=== PATIENT | male | born 1950 | race Caucasian/White ===

== ENCOUNTER 2021-01-30 12:04 | Inpatient (IN) ==
[2021-01-30] MEDS ORDERED: D5% in Water 1,000 ML IVC PRN (16:28)
[2021-01-30] MEDS ORDERED: Dextrose Gel 15 GM/37.5 ML TUBE PO PRN ×2 (16:28)
[2021-01-30] MEDS ORDERED: *HR* Dextrose 50 % in Water (Vial) 50 ML VIAL IVP PRN (16:28)
[2021-01-30] MEDS ORDERED: *HR* Metformin 500 MG TABLET PO SCH (17:00)
[2021-01-30] MEDS ORDERED: NON-FORMULARY MEDICATION 1 EACH EACH (Insulin Aspart [Novolog Flexpen] 100 UNIT/ML Insuln. SQ SCH (17:00)
[2021-01-30] MEDS: *HR* Metformin 500 MG TABLET PO SCH (18:33)
[2021-01-30] MEDS: RIVAROXABAN 2.5 MG PO SCH (18:33)
[2021-01-30] MEDS: Insulin LISPRO 300 UNITS/3 ML VIAL SUBQ SCH (18:33)
[2021-01-30] MEDS: Gabapentin 300 MG CAPSULE PO SCH (18:33)
[2021-01-30] MEDS: Insulin DETEMIR 100 UNIT/ML X5UNITS SUBQ SCH (21:15)
[2021-01-31 06:57] LABS: Basophils # 0.1 K/mcL (0.0-0.2); Basophils % 0.8 %; Eosinophils # 0.4 K/mcL (0.0-0.6); Eosinophils % 3.7 %; Hematocrit 34.9 % (37.5-50.1); Hemoglobin 11.3 g/dL (12.9-16.9); Immature Granulocytes % 0.8 % (0-4); Lymphocytes # 3.2 K/mcL (0.6-4.6); Lymphocytes % 33.4 %; Mean Corpuscular HGB Conc 32.4 g/dL (31.6-35.5); Mean Corpuscular Volume 89.5 fL (83.0-100.0); Mean Platelet Volume 11.2 fL (9.4-12.4); Monocytes # 1.2 K/mcL (0.0-1.3); Monocytes % 12.7 %; Neutrophils # 4.7 K/mcL (1.6-8.9); Platelet Count 228 K/mcL (140-400); Red Cell Distribution Width 14.5 % (11.5-14.5); Segmented Neutrophils % 48.6 %; White Blood Count 9.6 K/mcL (4.3-11.1)
[2021-01-31 07:21] LABS: BUN/Creatinine Ratio 18 (6-26); Blood Urea Nitrogen 24 mg/dL (8-23); Calcium 9.3 mg/dL (8.6-10.3); Carbon Dioxide 29 mEq/L (23-29); Chloride 104 mEq/L (98-107); Glucose 230 mg/dL (70-105); Osmolality,Calculated 303 (280-300); Sodium 141 mEq/L (136-145); eGFR For African Americans > 60 (> 60); eGFR For Non-African Americans 53 (> 60)
[2021-01-31] MEDS ORDERED: Insulin DETEMIR 100 UNIT/ML X5UNITS SUBQ SCH (09:00)
[2021-01-31] MEDS: RIVAROXABAN 2.5 MG PO SCH ×2 (09:12→17:07)
[2021-01-31] MEDS: Insulin LISPRO 300 UNITS/3 ML VIAL SUBQ SCH ×3 (09:14→17:07)
[2021-01-31] MEDS: *HR* GlipiZIDE XL (24 HR) 10 MG TABLET PO SCH (09:14)
[2021-01-31] MEDS: *HR* Metformin 500 MG TABLET PO SCH ×2 (09:14→17:06)
[2021-01-31] MEDS: Isosorbide MONOnitrate (24 HR) 60 MG TAB.ER.24H PO SCH (09:14)
[2021-01-31] MEDS: Cyanocobalamin (B-12) 1,000 MCG TABLET PO SCH (09:14)
[2021-01-31] MEDS: Cholecalciferol (D-3) 1,000 UNIT (25MCG) TABLET PO SCH (09:14)
[2021-01-31] MEDS: lisinopriL 5 MG TABLET PO SCH (09:15)
[2021-01-31] MEDS: Gabapentin 300 MG CAPSULE PO SCH ×2 (09:15→17:07)
[2021-01-31] MEDS: Metoprolol XL (24 HR) Succ 25 MG TAB.ER.24H PO SCH (09:15)
[2021-01-31] MEDS: Aspirin 81 MG TAB.CHEW PO SCH (09:15)
[2021-01-31] MEDS: Insulin DETEMIR 100 UNIT/ML X5UNITS SUBQ SCH ×2 (09:18→20:42)
[2021-01-31] MEDS ORDERED: *HR* LORazepam 0.5 MG TABLET PO PRN (17:35)
[2021-02-01] MEDS: RIVAROXABAN 2.5 MG PO SCH ×2 (08:04→16:57)
[2021-02-01] MEDS: *HR* GlipiZIDE XL (24 HR) 10 MG TABLET PO SCH (08:05)
[2021-02-01] MEDS: Cyanocobalamin (B-12) 1,000 MCG TABLET PO SCH (08:05)
[2021-02-01] MEDS: Metoprolol XL (24 HR) Succ 25 MG TAB.ER.24H PO SCH (08:05)
[2021-02-01] MEDS: Gabapentin 300 MG CAPSULE PO SCH ×2 (08:05→16:57)
[2021-02-01] MEDS: *HR* Metformin 500 MG TABLET PO SCH ×2 (08:05→16:56)
[2021-02-01] MEDS: lisinopriL 5 MG TABLET PO SCH (08:05)
[2021-02-01] MEDS: Insulin LISPRO 300 UNITS/3 ML VIAL SUBQ SCH ×3 (08:06→16:58)
[2021-02-01] MEDS: Cholecalciferol (D-3) 1,000 UNIT (25MCG) TABLET PO SCH (08:06)
[2021-02-01] MEDS: Isosorbide MONOnitrate (24 HR) 60 MG TAB.ER.24H PO SCH (08:06)
[2021-02-01] MEDS: Aspirin 81 MG TAB.CHEW PO SCH (08:06)
[2021-02-01] MEDS: Insulin DETEMIR 100 UNIT/ML X5UNITS SUBQ SCH ×2 (12:18→20:27)
[2021-02-02] MEDS: Insulin LISPRO 300 UNITS/3 ML VIAL SUBQ SCH ×3 (07:46→17:24)
[2021-02-02] MEDS: Isosorbide MONOnitrate (24 HR) 60 MG TAB.ER.24H PO SCH (08:49)
[2021-02-02] MEDS: Gabapentin 300 MG CAPSULE PO SCH ×2 (08:49→17:24)
[2021-02-02] MEDS: Aspirin 81 MG TAB.CHEW PO SCH (08:49)
[2021-02-02] MEDS: *HR* Metformin 500 MG TABLET PO SCH ×2 (08:49→17:24)
[2021-02-02] MEDS: Cyanocobalamin (B-12) 1,000 MCG TABLET PO SCH (08:50)
[2021-02-02] MEDS: Cholecalciferol (D-3) 1,000 UNIT (25MCG) TABLET PO SCH (08:50)
[2021-02-02] MEDS: *HR* GlipiZIDE XL (24 HR) 10 MG TABLET PO SCH (08:50)
[2021-02-02] MEDS: lisinopriL 5 MG TABLET PO SCH (08:50)
[2021-02-02] MEDS: Metoprolol XL (24 HR) Succ 25 MG TAB.ER.24H PO SCH (08:50)
[2021-02-02] MEDS: RIVAROXABAN 2.5 MG PO SCH ×2 (08:51→17:26)
[2021-02-02] MEDS: Insulin DETEMIR 100 UNIT/ML X5UNITS SUBQ SCH ×2 (08:51→20:27)
[2021-02-03] MEDS: Insulin LISPRO 300 UNITS/3 ML VIAL SUBQ SCH ×3 (07:21→17:17)
[2021-02-03] MEDS: RIVAROXABAN 2.5 MG PO SCH ×2 (08:38→17:16)
[2021-02-03] MEDS: Cholecalciferol (D-3) 1,000 UNIT (25MCG) TABLET PO SCH (08:38)
[2021-02-03] MEDS: Insulin DETEMIR 100 UNIT/ML X5UNITS SUBQ SCH ×2 (08:38→21:13)
[2021-02-03] MEDS: Metoprolol XL (24 HR) Succ 25 MG TAB.ER.24H PO SCH (08:39)
[2021-02-03] MEDS: lisinopriL 5 MG TABLET PO SCH (08:39)
[2021-02-03] MEDS: *HR* Metformin 500 MG TABLET PO SCH ×2 (08:39→17:16)
[2021-02-03] MEDS: Isosorbide MONOnitrate (24 HR) 60 MG TAB.ER.24H PO SCH (08:39)
[2021-02-03] MEDS: Gabapentin 300 MG CAPSULE PO SCH ×2 (08:39→17:16)
[2021-02-03] MEDS: Aspirin 81 MG TAB.CHEW PO SCH (08:39)
[2021-02-03] MEDS: *HR* GlipiZIDE XL (24 HR) 10 MG TABLET PO SCH (08:39)
[2021-02-03] MEDS: Cyanocobalamin (B-12) 1,000 MCG TABLET PO SCH (08:39)
[2021-02-04] MEDS: Aspirin 81 MG TAB.CHEW PO SCH (09:08)
[2021-02-04] MEDS: *HR* Metformin 500 MG TABLET PO SCH ×2 (09:08→16:55)
[2021-02-04] MEDS: Cholecalciferol (D-3) 1,000 UNIT (25MCG) TABLET PO SCH (09:08)
[2021-02-04] MEDS: Gabapentin 300 MG CAPSULE PO SCH ×2 (09:08→16:55)
[2021-02-04] MEDS: Cyanocobalamin (B-12) 1,000 MCG TABLET PO SCH (09:09)
[2021-02-04] MEDS: lisinopriL 5 MG TABLET PO SCH (09:09)
[2021-02-04] MEDS: *HR* GlipiZIDE XL (24 HR) 10 MG TABLET PO SCH (09:09)
[2021-02-04] MEDS: Isosorbide MONOnitrate (24 HR) 60 MG TAB.ER.24H PO SCH (09:09)
[2021-02-04] MEDS: Metoprolol XL (24 HR) Succ 25 MG TAB.ER.24H PO SCH (09:09)
[2021-02-04] MEDS: Insulin DETEMIR 100 UNIT/ML X5UNITS SUBQ SCH ×2 (09:11→21:20)
[2021-02-04] MEDS: Insulin LISPRO 300 UNITS/3 ML VIAL SUBQ SCH ×3 (09:13→16:55)
[2021-02-04] MEDS: RIVAROXABAN 2.5 MG PO SCH ×2 (11:28→16:55)
[2021-02-05] MEDS: Isosorbide MONOnitrate (24 HR) 60 MG TAB.ER.24H PO SCH (08:22)
[2021-02-05] MEDS: Insulin LISPRO 300 UNITS/3 ML VIAL SUBQ SCH ×3 (08:22→17:35)
[2021-02-05] MEDS: Metoprolol XL (24 HR) Succ 25 MG TAB.ER.24H PO SCH (08:23)
[2021-02-05] MEDS: Cyanocobalamin (B-12) 1,000 MCG TABLET PO SCH (08:23)
[2021-02-05] MEDS: Aspirin 81 MG TAB.CHEW PO SCH (08:23)
[2021-02-05] MEDS: Gabapentin 300 MG CAPSULE PO SCH ×2 (08:23→17:36)
[2021-02-05] MEDS: Cholecalciferol (D-3) 1,000 UNIT (25MCG) TABLET PO SCH (08:23)
[2021-02-05] MEDS: *HR* Metformin 500 MG TABLET PO SCH ×2 (08:23→17:37)
[2021-02-05] MEDS: lisinopriL 5 MG TABLET PO SCH (08:23)
[2021-02-05] MEDS: RIVAROXABAN 2.5 MG PO SCH ×2 (08:23→17:37)
[2021-02-05] MEDS: *HR* GlipiZIDE XL (24 HR) 10 MG TABLET PO SCH (08:23)
[2021-02-05] MEDS: Insulin DETEMIR 100 UNIT/ML X5UNITS SUBQ SCH ×2 (08:24→21:51)
[2021-02-05 10:12] LABS: Hematocrit 39.2 % (37.5-50.1); Hemoglobin 12.7 g/dL (12.9-16.9); Mean Corpuscular HGB Conc 32.4 g/dL (31.6-35.5); Mean Corpuscular Hemoglobin 29.3 pg (28.0-33.3); Mean Corpuscular Volume 90.3 fL (83.0-100.0); Mean Platelet Volume 11.4 fL (9.4-12.4); Platelet Count 243 K/mcL (140-400); Red Blood Count 4.34 M/mcL (4.19-5.50); Red Cell Distribution Width 14.6 % (11.5-14.5); White Blood Count 8.4 K/mcL (4.3-11.1)
[2021-02-05 10:22] LABS: Calcium 9.9 mg/dL (8.6-10.3); Potassium 4.8 mEq/L (3.5-5.1)
[2021-02-06] MEDS: Insulin LISPRO 300 UNITS/3 ML VIAL SUBQ SCH ×3 (07:34→17:25)
[2021-02-06] MEDS: Aspirin 81 MG TAB.CHEW PO SCH (08:55)
[2021-02-06] MEDS: Isosorbide MONOnitrate (24 HR) 60 MG TAB.ER.24H PO SCH (08:55)
[2021-02-06] MEDS: *HR* Metformin 500 MG TABLET PO SCH ×2 (08:55→17:25)
[2021-02-06] MEDS: Metoprolol XL (24 HR) Succ 25 MG TAB.ER.24H PO SCH (08:55)
[2021-02-06] MEDS: RIVAROXABAN 2.5 MG PO SCH ×2 (08:55→17:25)
[2021-02-06] MEDS: Insulin DETEMIR 100 UNIT/ML X5UNITS SUBQ SCH ×2 (08:56→19:57)
[2021-02-06] MEDS: Gabapentin 300 MG CAPSULE PO SCH ×2 (08:56→17:25)
[2021-02-06] MEDS: Cyanocobalamin (B-12) 1,000 MCG TABLET PO SCH (08:56)
[2021-02-06] MEDS: Cholecalciferol (D-3) 1,000 UNIT (25MCG) TABLET PO SCH (08:56)
[2021-02-06] MEDS: *HR* GlipiZIDE XL (24 HR) 10 MG TABLET PO SCH (08:56)
[2021-02-06] MEDS: lisinopriL 5 MG TABLET PO SCH (08:56)
[2021-02-07] MEDS: Insulin LISPRO 300 UNITS/3 ML VIAL SUBQ SCH ×3 (07:40→16:47)
[2021-02-07] MEDS: lisinopriL 5 MG TABLET PO SCH (07:45)
[2021-02-07] MEDS: Isosorbide MONOnitrate (24 HR) 60 MG TAB.ER.24H PO SCH (07:45)
[2021-02-07] MEDS: *HR* Metformin 500 MG TABLET PO SCH ×2 (07:45→16:46)
[2021-02-07] MEDS: Metoprolol XL (24 HR) Succ 25 MG TAB.ER.24H PO SCH (07:45)
[2021-02-07] MEDS: Cyanocobalamin (B-12) 1,000 MCG TABLET PO SCH (07:45)
[2021-02-07] MEDS: *HR* GlipiZIDE XL (24 HR) 10 MG TABLET PO SCH (07:45)
[2021-02-07] MEDS: Gabapentin 300 MG CAPSULE PO SCH ×2 (07:45→16:46)
[2021-02-07] MEDS: Aspirin 81 MG TAB.CHEW PO SCH (07:45)
[2021-02-07] MEDS: Cholecalciferol (D-3) 1,000 UNIT (25MCG) TABLET PO SCH (07:45)
[2021-02-07] MEDS: RIVAROXABAN 2.5 MG PO SCH ×2 (07:47→16:47)
[2021-02-07] MEDS: Insulin DETEMIR 100 UNIT/ML X5UNITS SUBQ SCH ×2 (07:49→20:33)
[2021-02-08] MEDS: RIVAROXABAN 2.5 MG PO SCH ×2 (08:04→18:30)
[2021-02-08] MEDS: Isosorbide MONOnitrate (24 HR) 60 MG TAB.ER.24H PO SCH (08:04)
[2021-02-08] MEDS: Cholecalciferol (D-3) 1,000 UNIT (25MCG) TABLET PO SCH (08:05)
[2021-02-08] MEDS: *HR* GlipiZIDE XL (24 HR) 10 MG TABLET PO SCH (08:05)
[2021-02-08] MEDS: *HR* Metformin 500 MG TABLET PO SCH ×2 (08:05→18:30)
[2021-02-08] MEDS: Aspirin 81 MG TAB.CHEW PO SCH (08:05)
[2021-02-08] MEDS: Cyanocobalamin (B-12) 1,000 MCG TABLET PO SCH (08:05)
[2021-02-08] MEDS: Metoprolol XL (24 HR) Succ 25 MG TAB.ER.24H PO SCH (08:05)
[2021-02-08] MEDS: Gabapentin 300 MG CAPSULE PO SCH ×2 (08:05→18:30)
[2021-02-08] MEDS: lisinopriL 5 MG TABLET PO SCH (08:05)
[2021-02-08] MEDS: Insulin LISPRO 300 UNITS/3 ML VIAL SUBQ SCH ×3 (08:06→18:34)
[2021-02-08] MEDS: Insulin DETEMIR 100 UNIT/ML X5UNITS SUBQ SCH ×2 (08:06→20:42)
[2021-02-09] MEDS: Insulin LISPRO 300 UNITS/3 ML VIAL SUBQ SCH ×3 (07:59→17:04)
[2021-02-09] MEDS: RIVAROXABAN 2.5 MG PO SCH ×2 (09:13→17:04)
[2021-02-09] MEDS: Cholecalciferol (D-3) 1,000 UNIT (25MCG) TABLET PO SCH (09:13)
[2021-02-09] MEDS: Isosorbide MONOnitrate (24 HR) 60 MG TAB.ER.24H PO SCH (09:13)
[2021-02-09] MEDS: Metoprolol XL (24 HR) Succ 25 MG TAB.ER.24H PO SCH (09:13)
[2021-02-09] MEDS: Cyanocobalamin (B-12) 1,000 MCG TABLET PO SCH (09:13)
[2021-02-09] MEDS: lisinopriL 5 MG TABLET PO SCH (09:14)
[2021-02-09] MEDS: *HR* Metformin 500 MG TABLET PO SCH ×2 (09:14→17:04)
[2021-02-09] MEDS: Gabapentin 300 MG CAPSULE PO SCH ×2 (09:14→17:04)
[2021-02-09] MEDS: Aspirin 81 MG TAB.CHEW PO SCH (09:14)
[2021-02-09] MEDS: *HR* GlipiZIDE XL (24 HR) 10 MG TABLET PO SCH (09:14)
[2021-02-09] MEDS: Insulin DETEMIR 100 UNIT/ML X5UNITS SUBQ SCH ×2 (09:16→21:04)
[2021-02-10] MEDS: Gabapentin 300 MG CAPSULE PO SCH ×2 (08:04→17:29)
[2021-02-10] MEDS: Aspirin 81 MG TAB.CHEW PO SCH (08:04)
[2021-02-10] MEDS: Insulin LISPRO 300 UNITS/3 ML VIAL SUBQ SCH ×3 (08:04→17:28)
[2021-02-10] MEDS: *HR* GlipiZIDE XL (24 HR) 10 MG TABLET PO SCH (08:05)
[2021-02-10] MEDS: Isosorbide MONOnitrate (24 HR) 60 MG TAB.ER.24H PO SCH (08:05)
[2021-02-10] MEDS: Metoprolol XL (24 HR) Succ 25 MG TAB.ER.24H PO SCH (08:05)
[2021-02-10] MEDS: lisinopriL 5 MG TABLET PO SCH (08:05)
[2021-02-10] MEDS: Cyanocobalamin (B-12) 1,000 MCG TABLET PO SCH (08:05)
[2021-02-10] MEDS: Cholecalciferol (D-3) 1,000 UNIT (25MCG) TABLET PO SCH (08:05)
[2021-02-10] MEDS: *HR* Metformin 500 MG TABLET PO SCH ×2 (08:05→17:29)
[2021-02-10] MEDS: RIVAROXABAN 2.5 MG PO SCH ×2 (08:06→17:28)
[2021-02-10] MEDS: Insulin DETEMIR 100 UNIT/ML X5UNITS SUBQ SCH ×2 (08:18→22:47)
[2021-02-11 06:09] LABS: Basophils # 0.1 K/mcL (0.0-0.2); Basophils % 0.9 %; Eosinophils # 0.4 K/mcL (0.0-0.6); Eosinophils % 3.8 %; Hematocrit 35.1 % (37.5-50.1); Hemoglobin 11.4 g/dL (12.9-16.9); Immature Granulocytes % 1.3 % (0-4); Lymphocytes # 3.4 K/mcL (0.6-4.6); Lymphocytes % 35.6 %; Mean Corpuscular HGB Conc 32.5 g/dL (31.6-35.5); Mean Corpuscular Volume 89.3 fL (83.0-100.0); Mean Platelet Volume 11.6 fL (9.4-12.4); Monocytes # 1.1 K/mcL (0.0-1.3); Monocytes % 11.1 %; Neutrophils # 4.5 K/mcL (1.6-8.9); Platelet Count 208 K/mcL (140-400); Red Blood Count 3.93 M/mcL (4.19-5.50); Red Cell Distribution Width 14.3 % (11.5-14.5); Segmented Neutrophils % 47.3 %; White Blood Count 9.5 K/mcL (4.3-11.1)
[2021-02-11 06:25] LABS: BUN/Creatinine Ratio 20 (6-26); Blood Urea Nitrogen 25 mg/dL (8-23); Calcium 9.7 mg/dL (8.6-10.3); Carbon Dioxide 26 mEq/L (23-29); Chloride 104 mEq/L (98-107); Glucose 152 mg/dL (70-105); Osmolality,Calculated 297 (280-300); Potassium 3.9 mEq/L (3.5-5.1); Sodium 140 mEq/L (136-145); eGFR For African Americans > 60 (> 60); eGFR For Non-African Americans 57 (> 60)
[2021-02-11] MEDS: Aspirin 81 MG TAB.CHEW PO SCH (08:10)
[2021-02-11] MEDS: Cholecalciferol (D-3) 1,000 UNIT (25MCG) TABLET PO SCH (08:10)
[2021-02-11] MEDS: Gabapentin 300 MG CAPSULE PO SCH ×2 (08:10→17:20)
[2021-02-11] MEDS: Cyanocobalamin (B-12) 1,000 MCG TABLET PO SCH (08:10)
[2021-02-11] MEDS: *HR* Metformin 500 MG TABLET PO SCH ×2 (08:10→17:20)
[2021-02-11] MEDS: *HR* GlipiZIDE XL (24 HR) 10 MG TABLET PO SCH (08:10)
[2021-02-11] MEDS: RIVAROXABAN 2.5 MG PO SCH ×2 (08:11→17:20)
[2021-02-11] MEDS: Insulin DETEMIR 100 UNIT/ML X5UNITS SUBQ SCH ×2 (08:11→20:13)
[2021-02-11] MEDS: Metoprolol XL (24 HR) Succ 25 MG TAB.ER.24H PO SCH (08:11)
[2021-02-11] MEDS: lisinopriL 5 MG TABLET PO SCH (08:11)
[2021-02-11] MEDS: Isosorbide MONOnitrate (24 HR) 60 MG TAB.ER.24H PO SCH (08:11)
[2021-02-11] MEDS: Insulin LISPRO 300 UNITS/3 ML VIAL SUBQ SCH ×3 (08:12→17:20)
[2021-02-12] MEDS: RIVAROXABAN 2.5 MG PO SCH ×2 (08:02→17:07)
[2021-02-12] MEDS: lisinopriL 5 MG TABLET PO SCH (08:03)
[2021-02-12] MEDS: Isosorbide MONOnitrate (24 HR) 60 MG TAB.ER.24H PO SCH (08:03)
[2021-02-12] MEDS: *HR* Metformin 500 MG TABLET PO SCH ×2 (08:03→17:07)
[2021-02-12] MEDS: Aspirin 81 MG TAB.CHEW PO SCH (08:03)
[2021-02-12] MEDS: Cholecalciferol (D-3) 1,000 UNIT (25MCG) TABLET PO SCH (08:03)
[2021-02-12] MEDS: Insulin LISPRO 300 UNITS/3 ML VIAL SUBQ SCH ×3 (08:03→17:07)
[2021-02-12] MEDS: Metoprolol XL (24 HR) Succ 25 MG TAB.ER.24H PO SCH (08:03)
[2021-02-12] MEDS: Cyanocobalamin (B-12) 1,000 MCG TABLET PO SCH (08:03)
[2021-02-12] MEDS: Gabapentin 300 MG CAPSULE PO SCH ×2 (08:03→17:07)
[2021-02-12] MEDS: Insulin DETEMIR 100 UNIT/ML X5UNITS SUBQ SCH ×2 (08:04→20:23)
[2021-02-12] MEDS: *HR* GlipiZIDE XL (24 HR) 10 MG TABLET PO SCH (08:04)
[2021-02-13 06:22] VITALS: BP 117/61
[2021-02-13] MEDS: *HR* GlipiZIDE XL (24 HR) 10 MG TABLET PO SCH (08:24)
[2021-02-13] MEDS: Aspirin 81 MG TAB.CHEW PO SCH (08:24)
[2021-02-13] MEDS: lisinopriL 5 MG TABLET PO SCH (08:24)
[2021-02-13] MEDS: *HR* Metformin 500 MG TABLET PO SCH (08:24)
[2021-02-13] MEDS: RIVAROXABAN 2.5 MG PO SCH (08:24)
[2021-02-13] MEDS: Isosorbide MONOnitrate (24 HR) 60 MG TAB.ER.24H PO SCH (08:24)
[2021-02-13] MEDS: Cyanocobalamin (B-12) 1,000 MCG TABLET PO SCH (08:24)
[2021-02-13] MEDS: Insulin LISPRO 300 UNITS/3 ML VIAL SUBQ SCH ×2 (08:24→11:33)
[2021-02-13] MEDS: Gabapentin 300 MG CAPSULE PO SCH (08:25)
[2021-02-13] MEDS: Cholecalciferol (D-3) 1,000 UNIT (25MCG) TABLET PO SCH (08:25)
[2021-02-13] MEDS: Metoprolol XL (24 HR) Succ 25 MG TAB.ER.24H PO SCH (08:25)
[2021-02-13] MEDS: Insulin DETEMIR 100 UNIT/ML X5UNITS SUBQ SCH (08:33)
== END 2021-02-13 13:24 | disposition home health service (06) | DRG 946 ==
LOC: INPPIK 15:57
PROVIDERS: ADMIT Family Medicine; ATTEND Family Medicine